=== PATIENT | male | born 1985 | race Caucasian/White ===

== ENCOUNTER → 2019-07-31 08:39 | Outpatient (CLI) | payer OTHER, SELFPAY ==
--- NOTE | 2019-07-31 08:41 | DI.US.S_ITS ---
PROCEDURE: US SCROTUM INDICATIONS: RIGHT SCROTAL ?HYDROCELE VS HERNIA TECHNIQUE: Real-time scanning was performed of the scrotum and testicles, with image documentation. Color and pulse Doppler interrogation was performed of both testicles. COMPARISON: None. FINDINGS: Right: Testicle is normal in size at 5.2 x 2.5 x 3.4 cm, and homogenous in echotexture. Epididymis is normal in overall size and morphology. Trace physiologic hydrocele. No varicoceles. Overlying scrotal skin is normal in thickness. Reducible, fat containing right inguinal hernia. Left: Testicle is normal in size at 5.4 x 2.5 x 2.9 cm, and homogeneous in echotexture. Epididymis is normal in overall size and morphology. Trace physiologic hydrocele. No varicoceles. Overlying scrotal skin is normal in thickness. Doppler: Color and pulse Doppler demonstrate normal and symmetric arterial flow in both testicles. IMPRESSION: 1. Normal testicles bilaterally. No mass. 2. Small bilateral hydroceles. No varicocele. 3. Small right indirect fat-containing hernia. Dictated by: Randy TIWARI Interpreted: Beltran Lopez MD on 07/31/2019 at 10:20 Approved by: Beltran Lopez M.D. on 07/31/2019 at 11:48
== END ==
PROVIDERS: PCP Family Medicine; Visit Provider Physician Assistant
DX: N50.89 Other specified disorders of the male genital organs (principal); N43.3 Hydrocele, unspecified; K40.90 Unilateral inguinal hernia, without obstruction or gangrene, not specified as recurrent
CPT/HCPCS: 76870

== ENCOUNTER → 2020-02-22 11:05 | Outpatient (CLI) | payer OTHER, SELFPAY ==
[2020-02-23 21:43] LABS: COVID19 Sendout Not Detected (Not Detect)
== END ==
PROVIDERS: PCP Family Medicine; Visit Provider Family Medicine
DX: Z11.59 Encounter for screening for other viral diseases (principal)
CPT/HCPCS: 87635

== ENCOUNTER → 2020-12-15 12:24 | Outpatient (CLI) | payer OTHER, SELFPAY ==
[2020-12-15 14:31] LABS: Hemoglobin A1C% w Est Avg Glu 4.7 % (4.0-6.0)
[2020-12-15 15:44] LABS: Alanine Aminotransferase 57 IU/L (<50); Albumin 4.8 g/dL (3.5-5.0); Albumin Globulin Ratio 1.7 (1.0-2.8); Alkaline Phosphatase 77 U/L (38-126); Aspartate Aminotransferase 41 IU/L (17-59); BUN Creatinine Ratio 21.2 (6-22); Bilirubin Total 0.9 mg/dL (0.2-1.3); Blood Urea Nitrogen 18 mg/dL (9-20); Calcium 9.5 mg/dL (8.4-10.2); Carbon Dioxide 27 mmol/L (22-32); Chloride 106 mmol/L (98-107); Cholesterol 207 mg/dL (140-199); Estimated Glomerular Filt Rate > 60.0 mL/min (>60); Globulin 2.8 g/dL (1.7-4.1); Glucose 100 mg/dL (70-100); HDL Cholesterol 54 mg/dL (40-60); HEMOLYSIS 40 (0-50); LDL Cholesterol Calculated 137 mg/dL (<100); Potassium 3.8 mmol/L (3.4-5.1); Sodium 140 mmol/L (137-145); Total Protein 7.6 g/dL (6.3-8.2); Triglycerides 79 mg/dL (35-150)
== END ==
PROVIDERS: PCP Family Medicine; Referring Provider Family Medicine; Visit Provider Family Medicine
DX: Z00.01 Encounter for general adult medical examination with abnormal findings (principal)
CPT/HCPCS: 36415; 80053; 80061; 83036; 84443

== ENCOUNTER → 2021-04-02 16:43 | Outpatient (CLI) | payer OTHER, SELFPAY ==
[2021-04-02 17:52] LABS: Alanine Aminotransferase 52 IU/L (<50); Albumin 4.7 g/dL (3.5-5.0); Albumin Globulin Ratio 1.7 (1.0-2.8); Alkaline Phosphatase 80 U/L (38-126); Aspartate Aminotransferase 36 IU/L (17-59); BUN Creatinine Ratio 17.3 (6-22); Bilirubin Total 0.5 mg/dL (0.2-1.3); Blood Urea Nitrogen 17 mg/dL (9-20); Calcium 9.9 mg/dL (8.4-10.2); Carbon Dioxide 30 mmol/L (22-32); Chloride 106 mmol/L (98-107); Estimated Glomerular Filt Rate > 60.0 mL/min (>60); Globulin 2.8 g/dL (1.7-4.1); Glucose 90 mg/dL (70-100); HEMOLYSIS < 15 (0-50); Potassium 4.6 mmol/L (3.4-5.1); Sodium 144 mmol/L (137-145); Total Protein 7.5 g/dL (6.3-8.2)
== END ==
PROVIDERS: PCP Family Medicine; Referring Provider Family Medicine; Visit Provider Family Medicine
DX: R74.8 Abnormal levels of other serum enzymes (principal)
CPT/HCPCS: 36415; 80053

== ENCOUNTER → 2021-11-08 13:49 | Outpatient (CLI) | payer OTHER, SELFPAY ==
[2021-11-08 14:34] LABS: Add Manual Diff / Slide Review NO; Basophils Absolute Auto 100 /uL (0-100); Basophils Percent Auto 0.7 % (0-2); Eosinophils Absolute Auto 100 /uL (0-450); Eosinophils Percent Auto 1.3 % (2-4); Hematocrit 42.9 % (41-53); Lymphocytes Absolute Auto 2300 /uL (1100-4500); Lymphocytes Percent Auto 28.4 % (25-40); Mean Corpuscular HGB Conc 35.1 % (30-36); Mean Corpuscular Hemoglobin 29.9 PG (26-34); Mean Corpuscular Volume 85.2 fL (80-100); Monocytes Absolute Auto 600 /uL (0-900); Monocytes Percent Auto 6.8 % (3-14); Neutrophils Absolute Auto 5100 /uL (1500-7000); Neutrophils Percent Auto 62.8 % (50-75); Platelet Count 289 X10^3/uL (150-400); Red Blood Cell Count 5.03 X10^6/uL (4.5-5.9); White Blood Cell Count 8.2 X10^3/uL (4.5-11.0)
[2021-11-08 14:50] LABS: Alanine Aminotransferase 45 IU/L (<50); Albumin 4.7 g/dL (3.5-5.0); Albumin Globulin Ratio 1.7 (1.0-2.8); Alkaline Phosphatase 70 U/L (38-126); Aspartate Aminotransferase 37 IU/L (17-59); BUN Creatinine Ratio 22.5 (6-22); Blood Urea Nitrogen 18 mg/dL (9-20); Calcium 9.6 mg/dL (8.4-10.2); Carbon Dioxide 25 mmol/L (22-32); Chloride 109 mmol/L (98-107); Cholesterol 201 mg/dL (140-199); Estimated Glomerular Filt Rate > 60.0 mL/min (>60); Globulin 2.7 g/dL (1.7-4.1); Glucose 97 mg/dL (70-100); HDL Cholesterol 54 mg/dL (40-60); HEMOLYSIS 17 (0-50); LDL Cholesterol Calculated 125 mg/dL (<100); Potassium 3.8 mmol/L (3.4-5.1); Sodium 142 mmol/L (137-145); Total Protein 7.4 g/dL (6.3-8.2); Triglycerides 108 mg/dL (35-150)
[2021-11-08 16:05] LABS: Creatinine Urine Random 218.9 mg/dL
[2021-11-08 16:09] LABS: Microalbumi Creatinin Ratio Ur 7.3 ug/mg CR (<30); Microalbumin Urine Random 1.6 mg/dL (0-1.6)
== END ==
PROVIDERS: PCP Family Medicine; Referring Provider Family Medicine; Visit Provider Family Medicine
DX: Z00.00 Encounter for general adult medical examination without abnormal findings (principal)
CPT/HCPCS: 36415; 80053; 80061; 82043; 82570; 85025

== ENCOUNTER → 2023-06-01 08:14 | Outpatient (CLI) | payer OTHER, MEDICAID, SELFPAY ==
--- NOTE | 2023-06-01 08:16 | DI.RAD.S_ITS ---
PROCEDURE: XR HAND LT MIN 3V INDICATIONS: MCP joint 3rd finger pain TECHNIQUE: 3 views of the hand(s) acquired. COMPARISON: None. FINDINGS: Bones: No fractures or dislocations. Carpal bones are normally aligned. No suspicious bony lesions. Soft tissues: No suspicious soft tissue calcifications. IMPRESSION: No acute osseous abnormality. If pain persists with conservative management, consider repeat x-ray in 10-14 days or cross-sectional imaging. Dictated by: Russell Dawson M.D. on 06/01/2023 at 10:44 Approved by: Russell Dawson M.D. on 06/01/2023 at 10:45
== END ==
PROVIDERS: PCP Family Medicine; Referring Provider Nurse Practitioner Family; Visit Provider Nurse Practitioner Family
DX: M25.542 Pain in joints of left hand (principal)
CPT/HCPCS: 73130

== ENCOUNTER → 2023-09-15 07:53 | Outpatient (CLI) | payer OTHER, MEDICAID, SELFPAY ==
[2023-09-15 08:31] LABS: Add Manual Diff / Slide Review NO; Basophils Absolute Auto 0 /uL (0-100); Basophils Percent Auto 0.4 % (0-2); Eosinophils Absolute Auto 200 /uL (0-450); Eosinophils Percent Auto 2.2 % (2-4); Hematocrit 44.1 % (41-53); Hemoglobin 15.5 g/dL (13.5-17.5); Lymphocytes Absolute Auto 2000 /uL (1100-4500); Mean Corpuscular HGB Conc 35.1 % (30-36); Mean Corpuscular Hemoglobin 30.2 PG (26-34); Mean Corpuscular Volume 86.1 fL (80-100); Monocytes Absolute Auto 600 /uL (0-900); Neutrophils Absolute Auto 4200 /uL (1500-7000); Neutrophils Percent Auto 60.4 % (50-75); Platelet Count 305 X10^3/uL (150-400); Red Blood Cell Count 5.12 X10^6/uL (4.5-5.9); Red Cell Distribution Width 12.9 % (11.6-14.8); White Blood Cell Count 6.9 X10^3/uL (4.5-11.0)
[2023-09-15 08:46] LABS: Alanine Aminotransferase 38 IU/L (<50); Albumin 4.4 g/dL (3.5-5.0); Albumin Globulin Ratio 1.6 (1.0-2.8); Alkaline Phosphatase 75 U/L (38-126); Aspartate Aminotransferase 25 IU/L (17-59); BUN Creatinine Ratio 25.9 (6-22); Blood Urea Nitrogen 21 mg/dL (9-20); C-Reactive Protein Quant 0.5 mg/dL (<1.0); Calcium 9.8 mg/dL (8.4-10.2); Carbon Dioxide 27 mmol/L (22-32); Chloride 107 mmol/L (98-107); Cholesterol 221 mg/dL (140-199); Estimated Glomerular Filt Rate > 60 mL/min (>60); Globulin 2.8 g/dL (1.7-4.1); Glucose 107 mg/dL (70-100); HDL Cholesterol 55 mg/dL (40-60); HEMOLYSIS < 15 (0-50); LDL Cholesterol Calculated 154 mg/dL (<100); Potassium 4.5 mmol/L (3.4-5.1); Sodium 139 mmol/L (137-145); Total Protein 7.2 g/dL (6.3-8.2); Triglycerides 61 mg/dL (35-150); Uric Acid 5.1 mg/dL (3.5-8.5)
[2023-09-15 08:51] LABS: Rheumatoid Factor < 8.6 IU/mL (<12.0)
[2023-09-15 09:41] LABS: Erythrocyte Sedimentation Rate 1 MM/HR (0-15)
[2023-09-17 07:16] LABS: Apolipoprotein B 112 mg/dL (<90)
== END ==
PROVIDERS: PCP Family Medicine; Referring Provider Family Medicine; Visit Provider Family Medicine
DX: F41.8 Other specified anxiety disorders (principal); E78.5 Hyperlipidemia, unspecified; F41.9 Anxiety disorder, unspecified; M25.40 Effusion, unspecified joint; G47.20 Circadian rhythm sleep disorder, unspecified type
CPT/HCPCS: 36415; 80053; 80061; 82172; 84550; 85025; 85651; 86140; 86430

== ENCOUNTER → 2023-11-16 16:31 | Outpatient (CLI) | payer OTHER, SELFPAY ==
--- NOTE | 2023-11-16 16:33 | DI.RAD.S_ITS ---
PROCEDURE: XR SHOULDER RT MIN 2V INDICATIONS: shoulder pain TECHNIQUE: 3 views of the shoulder were acquired. COMPARISON: None. FINDINGS: Bones: No fractures or dislocations. No suspicious bony lesions. Visualized ribs appear intact. Soft tissues: No suspicious soft tissue calcifications. IMPRESSION: No acute bony abnormality. Dictated by: Russell Dawson M.D. on 11/17/2023 at 9:34 Approved by: Russell Dawson M.D. on 11/17/2023 at 9:35
== END ==
LOC: RAD 16:32
PROVIDERS: PCP Family Medicine; Referring Provider Nurse Practitioner Family; Visit Provider Nurse Practitioner Family
DX: M25.511 Pain in right shoulder (principal)
CPT/HCPCS: 73030

== ENCOUNTER → 2023-12-01 08:16 | Outpatient (CLI) | payer OTHER, SELFPAY ==
--- NOTE | 2023-12-01 08:19 | DI.MRI.S_ITS ---
PROCEDURE: MR SHOULDER RT W CON INDICATIONS: Right Shoulder pain TECHNIQUE: After the administration of 12 mL of dilute intra-articular Gadolinium contrast, oblique coronal T1 and T2 spin echo with fat saturation, oblique sagittal T1 spin echo with and without fat saturation, oblique sagittal T2 fast spin echo with fat saturation, axial T1 spin echo with fat saturation through the shoulder. COMPARISON: [facility], CR, XR SHOULDER RT MIN 2V, 11/16/2023, 16:37. [facility], RF, [place] SHOULDER INJECTION MR/CT RT, 12/01/2023, 8:42. FINDINGS: Image quality: Excellent. Rotator cuff: Mild supraspinatus and infraspinatus tendinosis. The teres minor and subscapularis tendons are intact. No significant rotator cuff tendon tearing is seen. There is partial atrophy and fatty infiltration of the teres minor muscle that may be related to chronic denervation changes tearing no mass is seen along the course of the axillary nerve. The remainder of the rotator cuff musculature is normal in bulk. Mild intramuscular edema is seen within the posterior belly of the deltoid muscle. Edema related to the arthrogram injection is seen anterior to the shoulder. Bones and bursae: No acute trabecular bone injury or fracture. Chronic traction cystic changes are seen in the posterior superior humeral head. No focal cartilage defect is seen in the glenohumeral joint. There are mild degenerative changes at the acromioclavicular joint with subchondral cystic changes and subchondral edema. Trace noncommunicating fluid is seen at the subacromial/subdeltoid bursa. No intra-articular loose body is seen in the glenohumeral joint. Capsule and soft tissues: Focal nondisplaced tearing of the anterosuperior labrum with a 6 mm communicating paralabral cyst. The labrum otherwise appears to be intact. Proximal biceps long head tendon appears normal. Glenohumeral ligaments are intact. IMPRESSION: 1. Focal nondisplaced tearing of the anterior superior labrum with a 6 mm communicating paralabral cyst. 2. Mild supraspinatus and infraspinatus tendinosis. No significant rotator cuff tendon tearing. 3. Mild partial fatty infiltration of the teres minor muscle may be related to mild chronic denervation changes. No mass is seen along the course of the axillary nerve. 4. Nonspecific intramuscular edema within the posterior belly of the deltoid muscle, possibly related to a low-grade muscle strain or recent medication injection. 5. Mild acromioclavicular joint osteoarthrosis. Approved by: Kyle Grace M.D. on 12/01/2023 at 14:44
--- NOTE | 2023-12-01 08:19 | DI.RAD.S_ITS ---
PROCEDURE: [place] SHOULDER INJECTION MR/CT RT INDICATIONS: Right Shoulder pain COMPARISON: [facility], CR, XR SHOULDER RT MIN 2V, 11/16/2023, 16:37. TECHNIQUE: The indications, alternatives, benefits, risks, and complications of the procedure were explained to the patient. Written informed consent was obtained and placed in the chart. The shoulder was examined fluoroscopically and a site for needle placement chosen for entry into the glenohumeral joint from an anterior approach. The skin was prepped and draped in a sterile fashion, and 1% lidocaine infiltrated from skin down to joint capsule. A spinal needle was inserted into the glenohumeral joint, and a small amount of iodinated contrast media injected to confirm intra-articular placement of the needle tip. This was followed by approximately 12 mL dilute solution of a gadolinium containing MR contrast agent. The needle was removed and a dressing was applied. The patient was given postprocedural instructions and sent to the MR suite for MR imaging. FINDINGS: A single fluoroscopic spot image demonstrates intra-articular location of injected iodinated contrast. IMPRESSION: Successful fluoroscopically guided administration of dilute Gadolinium solution into the shoulder joint for MR arthrogram. Dictated by: Yessi Mujica M.D. on 12/01/2023 at 14:45 Approved by: Yessi Mujica M.D. on 12/01/2023 at 14:45
[2023-12-01] MEDS: LIDOCAINE 1% 20 ML INJ (08:50)
[2023-12-01] MEDS: SODIUM CHLORIDE 0.9 % 20 ML VIAL IV (09:46)
[2023-12-01 11:17] LABS: Rubella Antibody IgG > 350.0 IU/mL (>15)
[2023-12-02 14:19] LABS: Rubeola Measles IgG 58.3 AU/mL (Immune >16.4); Var-Zoster Immunity Screen 2471 index (Immune >165)
[2023-12-03 10:26] LABS: Mumps Virus IgG Antibody >300.0 AU/mL (Immune >10.9)
[2023-12-04 09:20] LABS: Hepatitis B Surf Ab Qualitativ Reactive (.)
[2023-12-06 15:00] LABS: QuantiFERON Mitogen Value >10.00 IU/mL (.); QuantiFERON Nil Value 0.07 IU/mL (.); QuantiFERON TB Gold Plus Negative (Negative); QuantiFERON TB1 Ag Value 0.08 IU/mL (.); QuantiFERON TB2 Ag Value 0.06 IU/mL (.)
== END ==
PROVIDERS: PCP Family Medicine; Referring Provider Family Medicine; Visit Provider Family Medicine
DX: S43.491A Other sprain of right shoulder joint, initial encounter (principal); S46.911A Strain of unspecified muscle, fascia and tendon at shoulder and upper arm level, right arm, initial encounter; M19.011 Primary osteoarthritis, right shoulder; Z01.84 Encounter for antibody response examination; Z11.1 Encounter for screening for respiratory tuberculosis; X58.XXXA Exposure to other specified factors, initial encounter
CPT/HCPCS: 23350; 36415; 73222; 77002; 86480; 86706; 86735; 86762; 86765; 86787